=== PATIENT | male | born 1945 ===

== ENCOUNTER → 2019-09-15 14:13 | Outpatient (BNVA) | payer OTHER, MEDICARE, SELFPAY | PROVIDERS: PCP Family Medicine; Referring Provider Family Medicine; Visit Provider Psychiatry & Neurology Neurology | DX: G92 Toxic encephalopathy (principal); G24.01 Drug induced subacute dyskinesia; R29.6 Repeated falls; R41.3 Other amnesia; G62.9 Polyneuropathy, unspecified; G43.709 Chronic migraine without aura, not intractable, without status migrainosus; G21.11 Neuroleptic induced parkinsonism | CPT/HCPCS: 99214 ==